=== PATIENT | male | born 1955 ===

== ENCOUNTER 2024-05-05 04:17 | Day surgery (SDC) | payer OTHER ==
[2024-04-30 16:05] VITALS: BMI 29.7
[2024-05-05] MEDS ORDERED: PROPOFOL 20 ML ONE (13:39)
[2024-05-05] MEDS ORDERED: LIDOCAINE HCL/PF 2% SDV 5ML VIAL ONE (13:41)
[2024-05-05] MEDS ORDERED: ROCURONIUM BROMIDE 50 MG/5 ML SYRINGE ONE (13:50)
[2024-05-05] MEDS: ceFAZolin SODIUM 1 GM VIAL IVPB ONE (14:50)
[2024-05-05] MEDS ORDERED: LACTATED RINGERS SOLUTION 1,000 ML IV SCH (15:15)
[2024-05-05] MEDS ORDERED: ONDANSETRON 4 MG/2 ML VIAL IVPUSH PRN (15:15)
[2024-05-05 15:32] VITALS: TEMP 97.8
[2024-05-05] MEDS ORDERED: ACETAMINOPHEN INJECTION 100 ML ONE (16:07)
[2024-05-05 16:36] VITALS: RESP 16
[2024-05-05 17:31] VITALS: BP 136/88; PULSE 56
== END 2024-05-05 17:33 | disposition home or self-care (01) ==
LOC: JASU-SURG 04:17
PROVIDERS: ATTEND Urology
PROC: 0DD Gastrointestinal System, Extraction (ICD-10-PCS; 2024-05-05)
PROC: 0VB07ZX Excision of Prostate, Via Natural or Artificial Opening, Diagnostic (ICD-10-PCS; principal; 2024-05-05 13:00)
DX: R97.20 Elevated prostate specific antigen [PSA] (principal)
CPT/HCPCS: 76998-TC; 88305-TC; 88342-TC; 94760; J0131